=== PATIENT | female | born 1995 | race Caucasian/White ===

== ENCOUNTER 2016-11-10 00:18 | Emergency (ER) | payer SELFPAY ==
[~2016-11-10] VITALS: Ht 162.6 cm; Wt 58.0 kg
[2016-11-10 01:00] VITALS: BP 107/76
== END 2016-11-10 03:10 | disposition left against medical advice (07) ==
LOC: ER 00:18
DX: Z53.21 Procedure and treatment not carried out due to patient leaving prior to being seen by health care provider (principal)